=== PATIENT | female | born 1995 | race American Indian/Alaskan Native ===

== ENCOUNTER 2017-08-08 09:12 | Emergency (ER) | payer MEDICAID ==
[2017-08-08] MEDS ORDERED: TYLENOL PO ONE (09:55)
[2017-08-08] MEDS ORDERED: TYLENOL ONE (09:56)
[2017-08-08] MEDS ORDERED: NACL 0.9% 1000 ML 1,000 ML IV ONE ×2 (12:19→13:03)
[2017-08-08] MEDS ORDERED: TORADOL IV ONE (12:19)
--- NOTE | 2017-08-08 12:21 | Emergency Department Report ---
Blank Doc - Documentation Documentation: Patient is a 22-year-old [place] female who is presenting with flulike symptoms with cough productive of clear sputum body aches and headache decreased appetite so a mild sore throat. Patient states that she is felt these symptoms for approximately 3 days. Patient will be given IV fluids and Toradol for fever and bodyaches and will be reassessed by MLP. Fluids were given since the patient is slightly tachycardic with some slight hypotension secondary to not eating and drinking
[2017-08-08] MEDS ORDERED: ZOFRAN ONE (13:03)
[2017-08-08] MEDS ORDERED: ZOFRAN IV ONE (13:03)
--- NOTE | 2017-08-08 14:14 | Emergency Department Report ---
HPI - General Chief Complaint: Upper Respiratory Infection Time Seen by Provider: 08/08/17 12:18 - HPI HPI: This is a patient came to the emergency room complaining of cold and flu symptoms with headache and body ache for 3 days. She said that she was exposed to the flu at work. Body ache is 10 out of 10 achy. [id number] cough and cold did not help. Denies any shortness of breath or chest pain. Denies any dizziness. Reports nasal congestion. cough productive of clear sputum . Patient reports decreased appetite. She says she is not drinking enough fluids because she feels a little nauseous. Denies any urinary burning frequency or urgency. Denies any abdominal or back pain. ED Past Medical Hx - Past Medical History Previous Medical History?: Yes Hx Asthma: Yes - Surgical History Past Surgical History?: No - Family History Family history: no significant - Social History Smoking Status: Never Smoker Substance Use Type: Alcohol, Non Opiate Pain, Other - Medications Home Medications: Home Medications Medication Instructions Recorded Confirmed Last Taken Type Cetirizine HCl [ZyrTEC] 10 mg PO QAM 10 Days #10 capsule 08/08/17 Unknown Rx Ibuprofen [Motrin] 600 mg PO Q8H PRN #12 tablet 08/08/17 Unknown Rx Ondansetron [Zofran Odt] 4 mg PO Q8H PRN #12 tab.rapdis 08/08/17 Unknown Rx Oseltamivir [Tamiflu] 75 mg PO BID 5 Days #10 cap 08/08/17 Unknown Rx guaiFENesin/CODEINE [Robitussin AC] 10 ml PO QHS PRN #50 oral.liqd 08/08/17 Unknown Rx ED Review of Systems ROS: Stated complaint: HEADACHE Other details as noted in HPI Comment: All other systems reviewed and negative Constitutional: chills, fever, malaise Eyes: denies: eye discharge ENT: throat pain, congestion. denies: ear pain Respiratory: cough. denies: orthopnea, shortness of breath, SOB with exertion, SOB at rest, stridor, wheezing Cardiovascular: denies: chest pain, palpitations, dyspnea on exertion, edema, syncope, paroxysmal nocturnal dyspnea Gastrointestinal: nausea. denies: abdominal pain, vomiting, diarrhea, constipation, hematemesis, melena, hematochezia Genitourinary: denies: urgency, dysuria, frequency, hematuria, discharge, abnormal menses Musculoskeletal: myalgia. denies: back pain, joint swelling, arthralgia Skin: denies: rash Neurological: headache, weakness. denies: numbness, paresthesias, confusion, abnormal gait, vertigo Physical Exam - Physical Exam Vital Signs: Vital Signs 08/08/17 08/08/17 09:51 12:28 Temperature 103.1 F H Pulse Rate 125 H Respiratory 20 18 Rate Blood Pressure 98/73 O2 Sat by Pulse 20 L Oximetry Vital Signs 08/08/17 08/08/17 08/08/17 09:51 12:28 14:24 Temperature 103.1 F H Pulse Rate 125 H 69 Respiratory 20 18 Rate Blood Pressure 98/73 126/77 O2 Sat by Pulse 20 L 100 Oximetry Vital Signs 08/08/17 08/08/17 08/08/17 09:51 12:28 14:24 Temperature 103.1 F H Pulse Rate 125 H 69 Respiratory 20 18 Rate Blood Pressure 98/73 126/77 O2 Sat by Pulse 20 L 100 Oximetry 08/08/17 15:14 Temperature 98.7 F Pulse Rate Respiratory Rate Blood Pressure O2 Sat by Pulse Oximetry General: This is a 22-year-old female well-nourished well-developed looks mildly ill but nontoxic in appearance. Physical Exam: Head: Normocephalic, atraumatic, no abrasion, no bruising and no contusion. Eyes: Biateral pupils equal and reactive to light, bilateral EOM intact.. Bilateral conjunctival and sclera without injection, normal accommodation. No nystagmus Mouth: Moist, no pharyngeal exudate or erythema. No peritonsillar abscesses. Uvula is midline and oral airways patent. Ears: Bilateral TM congested without erythema. Bilateral EAC without any redness swelling or drainage. No mastoid bone tenderness Nose: Bilateral nasal turbinates congested with erythema and clear drainage. Maxillary and frontal sinuses non-tender to palpate. Neck: Supple, No Cervical adenopathy, full range of motion and no C-spine tenderness. No swelling or tracheal deviation normal reflexes Cardiovascular: S1, S2. Tachycardic ,Regular rhythm. No murmur. Capillary refill is less then 3 seconds. Lungs: Clear to auscultate bilaterally. No rhonchi, wheezes or rales. No chest wall tenderness. No chest contusion. No bruising to chest. MSK: Strength 5/5 in all extremities. No joint deformity or crepitus. Normal inspection. Full range of motion to all extremities. No laceration, abrasion or ecchymotic area noted. Abdomen: Non-tender to palpate in all quadrants, no guarding or rebound tenderness, positive bowel sounds in all quadrants. No CVA tenderness. No hernia, bruit or mass. No rigidity or distention. Extremities: No clubbing, cyanosis or edema. +2 pulses. No neurovascular compromise Skin: Clean, dry and intact. No rash or lesions. Neurological: GCS at 15, Pt is alert and oriented 3 speech is clear period. Bilateral hand ruling machine feeder strong and equal. Normal gait. Negative Romberg and no pronator drift. Normal Reflexes. No motor or sensory deficit Back: No vertebral tenderness, no paraspinal tenderness. The bend over and touch his toes without any difficulties. Ambulates without any difficulties. Psych: Normal mood and behavior ED Course Vital Signs 08/08/17 08/08/17 09:51 12:28 Temperature 103.1 F H Pulse Rate 125 H Respiratory 20 18 Rate Blood Pressure 98/73 O2 Sat by Pulse 20 L Oximetry Vital Signs 08/08/17 08/08/17 08/08/17 09:51 12:28 14:24 Temperature 103.1 F H Pulse Rate 125 H 69 Respiratory 20 18 Rate Blood Pressure 98/73 126/77 O2 Sat by Pulse 20 L 100 Oximetry 08/08/17 15:14 Temperature 98.7 F Pulse Rate Respiratory Rate Blood Pressure O2 Sat by Pulse Oximetry - Reevaluation(s) Reevaluation #1: 08/08/17 15:14 Patient here reports flulike symptoms. She was treated with 2 L of IV fluid, Zofran 4 mg IV, Toradol 30 mg IV for bodyaches and Tylenol 650 mg fever. She is currently afebrile blood pressure stable heart rate is normal. Denies that she feels better and she is up and walking around. ED Medical Decision Making - Medical Decision Making ED course: Patient presents to emergency room or flulike symptoms that she says she was exposed at work to multiple people with the flu. She came in with elevated temperature, heart rate and slight decrease in blood pressure. She was treated with IV fluid 2 L, Zofran IV for nausea 4 mg and Toradol 30 mg IV to help with pain. She was given Tylenol 650 mg by mouth for fever. Her vital signs are better and she is afebrile. He was orally hydrated with 2 cups of ice water and emergency room after IV fluid and she tolerated well. Patient says she is feeling better. I discussed the patient that she will need to orally hydrate herself with at least 2-3 L of fluid to include oral juice and water daily, rest for 3 days, and take Tamiflu. Patient will be treated for influenza due to exposure and physical findings and symptoms. Patient discharged home a prescription for Motrin, Tamiflu, Zyrtec, cough medicine with codeine and Zofran. Follow up with primary care physician which she does have in 4 days. Critical care attestation.: If time is entered above; I have spent that time in minutes in the direct care of this critically ill patient, excluding procedure time. ED Disposition Clinical Impression: Exposure to the flu, Acute viral syndrome, Fever in adult, Upper respiratory infection with cough and congestion, Musculoskeletal pain, Nausea alone Disposition: DC-01 TO HOME OR SELFCARE Is pt being admited?: No Does the pt Need Aspirin: No Condition: Stable Instructions: Fever in Adults (ED), Acute Cough (ED), Acute Nausea and Vomiting (ED), Viral Syndrome (ED) Additional Instructions: Please increase her fluid intake to 2-3 L of fluid per day to include upper juice and orange juice. Take medication as prescribed. Your prescribed Tamiflu which is antiviral medication to treat the flu. Please see discharge information on Tamiflu. will need to follow up with a primary care physician in 4 days. Return to the emergency room if he condition worsens Take Zofran for nausea as needed Take Motrin every 6 hours as needed for fever/pain. Please take every 6 hours for the next 2 days and then as needed Prescriptions: guaiFENesin/CODEINE [Robitussin AC] 10 ml PO QHS PRN #50 oral.liqd PRN Reason: Cough Cetirizine HCl [ZyrTEC] 10 mg PO QAM 10 Days #10 capsule Ibuprofen [Motrin] 600 mg PO Q8H PRN #12 tablet PRN Reason: FEVER/PAIN Ondansetron [Zofran Odt] 4 mg PO Q8H PRN #12 tab.rapdis PRN Reason: Nausea And Vomiting Oseltamivir [Tamiflu] 75 mg PO BID 5 Days #10 cap Referrals: PRIMARY CARE, [Primary Care Provider] - 08/12/17 [facility] [Outside] - 08/12/17 Forms: Work/School Release Form(ED)
[2017-08-08 14:27] VITALS: BP 126/77
[2017-08-09] MEDS ORDERED: NACL ONE (16:45)
== END 2017-08-08 15:33 | disposition home or self-care (01) ==
LOC: ED 09:12
DX: B34.9 Viral infection, unspecified (principal); J06.9 Acute upper respiratory infection, unspecified
CPT/HCPCS: 96361; 96374; 96375; 99283; J1885; J2405; J7030